=== PATIENT | male | born 1970 | race Two or more races ===

== ENCOUNTER 2017-10-17 19:46 | Emergency (ER) | payer SELFPAY ==
[2017-10-17] MEDS: IPRATRPIUM/ALBUTEROL 0.5/2.5MG 3 ML NEBU. NEB (20:12)
[2017-10-17] MEDS: ALBUTEROL SULFATE 2.5 MG/3 ML NEBU. INH (20:12)
[2017-10-17 20:14] LABS: ADD MAN DIFF? NO
[2017-10-17] MEDS: IV NORMAL SALINE 1000ML BAG 1,000 ML IV (20:14)
[2017-10-17] MEDS: predniSONE 10 MG TABLET PO (20:14)
[2017-10-17] MEDS: ACETAMINOPHEN 500 MG TABLET PO (20:14)
[2017-10-17 20:25] LABS: BASO % 1 % (0-3); EOS % 1 % (0-3); HEMATOCRIT 44.5 % (39.0-53.0); HEMOGLOBIN 15.2 g/dL (13.0-17.5); LYMPH # 0.7 x10^3/uL (1.0-4.8); LYMPH % 17 % (24-48); MEAN CORPUSCULAR HEMOGLOBIN 31 pg (25-35); MEAN CORPUSCULAR HGB CONC 34 g/dL (31-37); MEAN CORPUSCULAR VOLUME 90 fL (79-100); MONO # 0.7 x10^3/uL (0.0-1.1); MONO % 17 % (0-9); NEUT # 2.7 x10^3uL (1.8-7.7); NEUT % 65 % (31-73); PLATELET COUNT 251 x10^3/uL (140-400); RED BLOOD COUNT 4.96 x10^6/uL (4.30-5.70); RED CELL DISTRIBUTION WIDTH 12.9 % (11.5-14.5); WHITE BLOOD COUNT 4.1 x10^3/uL (4.0-11.0)
[2017-10-17 20:27] LABS: ANION GAP 13 (6-14); BLOOD UREA NITROGEN 13 mg/dL (8-26); BUN/CREATININE RATIO 13 (6-20); CALCIUM 8.7 mg/dL (8.5-10.1); CARBON DIOXIDE 24 mmol/L (21-32); CHLORIDE 100 mmol/L (98-107); GFR 80.1; GLUCOSE 117 mg/dL (70-99); SODIUM 137 mmol/L (136-145)
[2017-10-17 20:36] LABS: TROPONINI < 0.017 ng/mL (0.000-0.055)
[2017-10-17 20:40] LABS: ALBUMIN/GLOBULIN RATIO 1.1 (1.0-1.7); ALK PHOS 63 U/L (46-116); ALT (SGPT) 66 U/L (16-63); AST (SGOT) 35 U/L (15-37); TOTAL PROTEIN 7.7 g/dL (6.4-8.2)
[2017-10-17 20:41] LABS: NT-PRO BNP 26 pg/mL (0-124)
[2017-10-17 20:55] LABS: INFLUENZA A PATIENT POSITIVE (NEGATIVE); INFLUENZA B PATIENT NEGATIVE (NEGATIVE); OBC FLU VALID
== END 2017-10-17 21:45 | disposition home or self-care (01) ==
LOC: ER 19:46
DX: J09.X1 Influenza due to identified novel influenza A virus with pneumonia (principal); J45.901 Unspecified asthma with (acute) exacerbation; J44.9 Chronic obstructive pulmonary disease, unspecified; Z87.891 Personal history of nicotine dependence; Z79.899 Other long term (current) drug therapy; Z88.6 Allergy status to analgesic agent
CPT/HCPCS: 36415; 71045; 80053; 83880; 84484; 85025; 87804; 87804-59; 93005; 94640; 96360; 99285-25; J7030; J7512; J7613; J7620